=== PATIENT | female | born 1995 | race African-American/Black ===

== ENCOUNTER 2016-08-02 08:03 | Inpatient (IN) | payer OTHER ==
[2016-08-02] VITALS (11 sets, daily range): BP systolic 119–150; BP diastolic 66–90
[~2016-08-02] VITALS: Ht 167.6 cm; Wt 83.0 kg
[2016-08-02] MEDS ORDERED: PRENTAB9 PO (08:12)
[2016-08-02] MEDS ORDERED: LACTATED RINGER'S 1000 ML IV STA (08:45)
[2016-08-02 08:59] LABS: MEAN CORPUSCULAR HEMOGLOBIN 27.5 pg (27.0-33.0); MEAN CORPUSCULAR HGB CONC 33.9 g/dl (32.0-36.5); MEAN CORPUSCULAR VOLUME 81.2 fl (80.0-96.0); RED CELL DISTRIBUTION WIDTH 12.4 % (11.5-14.5); WHITE BLOOD COUNT 10.7 K/mm3 (4.0-10.0)
[2016-08-02] MEDS ORDERED: FENTANYL 2MCG/ML ROPIVACAINE 0.2% IN 0.9% NACL 200ML IVBAG As Ordered ONE (09:17)
--- NOTE | 2016-08-02 09:21 | HPEPDOC ---
Obstetrical History & Physical General Date of Admission Aug 02, 2016 at 08:28 History of Present Illness Coleman is a 20yo with freitas IUP at 40w3d presenting with regular painful ctx. No LOF. No VB. Feels good movement. PMhx: asthma treated with prn albuterol, sickle cell trait (FOB negative) course: uncomplicated Chief Complaint: Contractions, term Information Provided By: Patient Care Care: Good Care Dating Final EDC: Jul 30, 2016 Final EDC by: LMP, 1st trimester (US) Antepartum Course Diagnos(e)s course uncomplicated Height (inches): 66 Pre- weight (lbs.): 168 Admission Weight (lbs.): 201 Change in Weight (lbs.): 33 Past Medical History Past Obstetrical History : Past Obstetrical History: [employer] History: No pertinent history Past Medical History Medical History PMhx: asthma treated with prn albuterol, sickle cell trait (FOB negative) Surgical History: [place] teeth Family History Significant Family History: No pertinent family hx Social History Marital Status: Family situation: Spouse/partner home Psychosocial History: No pertinent psych hx * Smoker: non-smoker Alcohol: Denies Drugs: denies Imunizations Tdap status: current Influenza Status: current Allergies Coded Allergies: No Known Drug Allergy (Verified Allergy, Unknown, 10/29/15) Medications Scheduled Multivitamins/ ( 27-0.8 mg) 1 Tab Tab, 1 TAB PO DAILY Physical Examination Physical Examination GENERAL: Alert and oriented times three. BREAST: . ABDOMEN: Gravid and non-tender to touch. FETUS: Is vertex (VTX) by sterile vaginal examination (SVE) HEART RATE: Regular rate and rhythm. LUNGS: Clear to auscultation (CTA). EXTREMITIES: trace edema of BLE Laboratory Data 24H LABS Laboratory Tests 2 08/02/16 08:47: 08/02/16 09:06: Serology Scanned Report Hepatitis B Testing CBC/BMP Laboratory Tests 08/02/16 08:47 Red Blood Count 4.62, Mean Corpuscular Volume 81.2, Mean Corpuscular Hemoglobin 27.5, Mean Corpuscular Hemoglobin Concent 33.9, Red Cell Distribution Width 12.4 Pertinent Laboratoy Data Blood Type: A+ RBC Antibody Screen: Negative HIV: Negative Hepatitis B: Negative Hepatitis C: Unknown Rapid Plasma Reagin: Nonreactive Rubella: Immune Chlamydia/Gonorrhea: Negative Group B Streptococcus: Negative Quad Screen Test: Negative Glucose Tolerance Test: 71 Anatomy Ultrasound Ultrasound Date: Mar 12, 2016 Placenta Location: Anterior Normal Anatomy: Yes Placenta Previa: No Steroid Therapy Steroid Therapy: No Vaginal Examination Dilation: 6 cm Effacement: 80+% Station: 0 Cervical Consistency: Soft Cervical Position: Anterior Presentation: Cephalic presentation Assessment Heart Rate (FHR): 140 Variability: Minimal to moderate Accelerations: Positive Decelerations: None Tocometer Contractions: Yes Frequency: regular, every 2-5 min. Duration: greater than 60 seconds Strength: palpated as strong Assessment/Plan Assessment Coleman is a 20yo with freitas IUP at 40w3d admitted in active labor, SCE with regular ctx. Cephalic by SCE. GBS negative. Cat I FHRT. PMhx: asthma treated with prn albuterol, sickle cell trait (FOB negative) course: uncomplicated Plan Admit and orient. Research Analyst and consent. Diet: clear liquids Labs and intravenous (IV) per unit protocol. Lactated Ringers (LR): Bolus 1000 mL, then at 125 mL/hr. Anticipate normal spontaneous delivery () C-S as appropriate Desires epidural for pain management, consult placed MD MARIANA Amador KATRINA D. MD Aug 02, 2016 09:21
[2016-08-02] MEDS: LR 1,000 ML IV SCH ×2 (09:34→16:45)
[2016-08-02] MEDS ORDERED: diphenhydrAMINE INJ 50MG/ML VIAL (J1200) IV PRN (10:00)
[2016-08-02] MEDS: FENTANYL/ROPIVACAINE/NACL BAG 200 ML EPIDURAL SCH (10:00)
[2016-08-02] MEDS ORDERED: ePHEDrine SULFATE 25 MG/5 ML(5MG/ML) SYRINGE IV PRN (10:00)
[2016-08-02] MEDS ORDERED: ONDANSETRON 4MG/2ML VIAL (J2405) IV PRN (10:00)
[2016-08-02] MEDS ORDERED: REFRIGERATOR IV KEYS XX PRN (10:00)
[2016-08-02] MEDS ORDERED: EPIDURAL/PCA KEYS XX PRN (10:00)
[2016-08-02] MEDS ORDERED: EPIDURAL COMMENT XX SCH (10:00)
[2016-08-02] MEDS ORDERED: NALOXONE INJ 0.4 MG/1 ML VIAL (J2310) IV PRN (10:00)
[2016-08-02] MEDS ORDERED: LACTATED RINGER'S 1000 ML IV PRN (10:00)
[2016-08-02] MEDS ORDERED: TERBUTALINE SULFATE 1 MG/ML VIAL (J3105) SC ONE (11:30)
[2016-08-02] MEDS ORDERED: TERBUTALINE SULFATE 1 MG/ML VIAL (J3105) As Ordered ONE (11:33)
--- NOTE | 2016-08-02 11:41 | IPNPDOC ---
Text Note Date of Service The patient was seen on 08/02/16. NOTE Patient comfortable with epidural Intermittent Cat I-Cat II tracing with occasional variables, occasions of min variability AROM performed with thick meconium noted. FSE applied. C/C/-1. One pushing attempt performed, but FHR decelerated to 80's with recovery only after repositioning on hands and knees and dose of terbutaline given. Will continue to allow for passive descent and closely monitor FHRT. Fred Hung VS,Alison, I+O VS, Alison, I+O Laboratory Tests 08/02/16 08:47 Red Blood Count 4.62, Mean Corpuscular Volume 81.2, Mean Corpuscular Hemoglobin 27.5, Mean Corpuscular Hemoglobin Concent 33.9, Red Cell Distribution Width 12.4 Vital Signs Date Time Temp Pulse Resp B/P (MAP) Pulse Ox O2 Delivery O2 Flow Rate FiO2 08/02/16 10:32 86 130/78 (95) 08/02/16 10:16 98.8 18 CHETAN HUNG MD Aug 02, 2016 11:41
[2016-08-02] MEDS ORDERED: OXYTOCIN 30 UNITS IN 0.9% NaCl 500ML IV BAG (J2590) As Ordered ONE (12:33)
[2016-08-02 12:58] LABS: CORD GAS ABE A -3.6; CORD GAS HCO3 A 24.8 MEQ/L; CORD GAS O2 SAT A 19.7 %; CORD GAS PCO2 A 59.3 mmHg; CORD GAS PH A 7.239 UNITS; CORD GAS PO2 A 14.3 mmHg; CORD GAS SBC A 19.7 MEQ/L; CORD GAS TCO2 A 26.6 MEQ/L
[2016-08-02 13:01] LABS: CORD GAS HCO3 V 23.4 MEQ/L; CORD GAS O2 SAT V 70.3 %; CORD GAS PCO2 V 46.4 mmHg; CORD GAS PH V 7.32 UNITS; CORD GAS SBC V 21.3 MEQ/L; CORD GAS TCO2 V 24.8 MEQ/L
[2016-08-02] MEDS ORDERED: OXYTOCIN DRIP 30 UNITS in APPROPRIATE DILUENT 1 EA IV SCH (13:11)
[2016-08-02] MEDS ORDERED: ACETAMINOPHEN 500 MG TAB PO PRN (13:15)
[2016-08-02] MEDS ORDERED: MEASLES,MUMPS,RUBELLA VACCINE INJ (MMR-II) (90707) SC SCH (13:15)
[2016-08-02] MEDS ORDERED: IBUPROFEN 800 MG TAB PO PRN (13:15)
[2016-08-02] MEDS ORDERED: RHOGAM 300 MCG (1500 IU) INJ (J2790) IM SCH (13:15)
[2016-08-02] MEDS ORDERED: DOCUSATE SODIUM 100 MG CAP PO PRN (13:15)
--- NOTE | 2016-08-02 13:22 | DNPDOC ---
[facility] Delivery Note Delivery Note DATE OF DELIVERY: Aug 02, 2016 at 1315 PREDELIVERY DIAGNOSIS: 40w3d gestation and labor. POST DELIVERY DIAGNOSIS: Delivered. PROCEDURE: vacuum assisted vaginal delivery PHOTOGRAPH TINTER: Dr. Hung ANESTHESIA: epidural ESTIMATED BLOOD LOSS: 200 mL. FINDINGS: 8 pound 10 ounce female infant, Score 8/9 DELIVERY SUMMARY: Coleman is a 20yo G1 now P1001 who was admitted to L&D for active labor. She had an uncomplicated outlet vacuum assisted vaginal delivery of a viable female at 1239 on 02 August 2016 at 40w3d. Meconium was noted prior on amniotomy and FHRT wavered between Cat I and Cat II with periods of minimal variability and occasional late decelerations, so patent searcher was alerted to requested presence at delivery. She progressed to C/C/+4 and was noted to have decelerations to the 70's. Due to NRFHT, decision was made for vacuum assisted vaginal delivery. Bladder had been drained with guillen removed just prior, anesthesia was found to be adequate, position confirmed OA, and pediatricians and staff present for delivery. Suction cup was applied at the flexion point along the midline sagittal suture. Appropriate suction was applied. With 1 sets of push/pulls and no pop-offs, head was delivered OA , restituted MILTON. No nuchal cord but right compound hand present. Left anterior shoulder delivered followed by posterior shoulder and corpus. Cord clamped x2 and cut by this provider. Baby immediately handed off to patent searcher. Apgars 8/9, weight 3924g or [id number]. Blood gases obtained: pHa 7.239, BE -3.6 and pHv 7.320, BE -3. With gentle downward guidance and suprapubic pressure, placenta delivered spontaneously and intact with a centrally inserted cord. Fundal massage until both uterine fundus and lower uterine segment firm. Pitocin 30 units IV bolus administered. Inspection of perineum and vaginal wall revealed small hymenal tear and left labial laceration closed with 3.0 vicryl suture with good hemostasis. Mom and infant in stable condition. Inspection of revealed no scalp or facial bruising, lacerations, or edema, and full range of motion of all extremities present. MD MARIANA Amador,CHETAN Lacey MD Aug 02, 2016 13:21
[2016-08-03] MEDS: LR 1,000 ML IV SCH (00:45)
[2016-08-03 06:10] VITALS: BP 110/71
[2016-08-03] MEDS: PRENATAL VITAMIN TAB PO SCH (08:10)
--- NOTE | 2016-08-03 10:25 | IPNPDOC ---
Text Note Date of Service The patient was seen on 08/03/16. NOTE Coleman is a 20yo [id number] doing well on PPD 1 s/p uncomplicated VAVD for terminal bradycardia. Had small left labial/hymenal laceration. She is without issue. Lochia normal, spontaneously voiding and ambulating without difficulty. Tolerating regular diet. Denies f/c/n/v/SOB/CP/ESQUEDA /abdominal pain. Vitals wnl, afebrile Exam: General: WDWN, NAD, resting comfortably Cardiac: S1S2 present, no murmur Lungs: CTAB without wheeze/crackles Abdomen: soft, NTTP, fundus firm u-2cm Extremities: no tenderness of calves bilaterally Assessment: Coleman is a 20yo [id number] doing well on PPD 1 s/p uncomplicated VAVD for terminal bradycardia. Vitals wnl, benign exam. No e /o infection, hemodynamically stable. Plan: -routine post- care -tylenol/motrin prn pain -encourage and ambulation -desires minipill for contraception -will have 6wk PP follow-up visit Dr. Chetan Hung MD [place] OBGYKeisha VS,Alison, I+O VSAlison, I+O Vital Signs Date Time Temp Pulse Resp B/P (MAP) Pulse Ox O2 Delivery O2 Flow Rate FiO2 08/03/16 06:10 98.3 86 18 110/71 (84) I&O- Last 24 Hours up to 6 AM 08/03/16 06:00 Intake Total 2700 ml Output Total 200 ml Balance 2500 ml CHETAN HUNG MD Aug 03, 2016 10:24
[2016-08-03 18:00] VITALS: BP 120/72
[2016-08-04 05:26] VITALS: BP 133/66
[2016-08-04] MEDS: FENTANYL/ROPIVACAINE/NACL BAG 200 ML EPIDURAL SCH ×2 (07:16→07:17)
[2016-08-04] MEDS: PRENATAL VITAMIN TAB PO SCH (07:37)
[2016-08-04] MEDS ORDERED: COLA100C3 PO (09:05)
[2016-08-04] MEDS ORDERED: IBUP-1114 PO (09:05)
[2016-08-04] MEDS ORDERED: ACET50TA PO (09:05)
== END 2016-08-04 11:40 | disposition home or self-care (01) | DRG 775 ==
LOC: M LDO 08:03 → M LDI 08:28 → M OBS 16:12
PROVIDERS: ADMIT Obstetrics & Gynecology; ATTEND Obstetrics & Gynecology
PROC: 10D07Z6 Extraction of Products of Conception, Vacuum, Via Natural or Artificial Opening (ICD-10-PCS; principal; 2016-08-02)
PROC: 10907ZC Drainage of Amniotic Fluid, Therapeutic from Products of Conception, Via Natural or Artificial Opening (ICD-10-PCS; 2016-08-02)
PROC: 0HQ9XZZ Repair Perineum Skin, External Approach (ICD-10-PCS; 2016-08-02)
DX: O48.0 Post-term pregnancy (principal); Z37.0 Single live birth; Z3A.40 40 weeks gestation of pregnancy; O99.52 Diseases of the respiratory system complicating childbirth; J45.909 Unspecified asthma, uncomplicated; O76 Abnormality in fetal heart rate and rhythm complicating labor and delivery; O77.0 Labor and delivery complicated by meconium in amniotic fluid; O70.0 First degree perineal laceration during delivery; Z79.899 Other long term (current) drug therapy